=== PATIENT | male | born 1940 | race Caucasian/White ===

== ENCOUNTER 2017-10-12 21:31 | Observation (INO) | payer MEDICARE, BC ==
[~2017-10-12] VITALS: Ht 185.4 cm; Wt 64.9 kg
[~2017-10-12 21:31] MED LIST: B-COMPLEX PLUS1 TAB PO; CALCIUM1 CAP PO; CIPRO 500MG TA500 MG PO; COLACE 100100 MG/CAP PO; FLOMAX 0.40.4 MG/CAP PO; MULTIPLE VITAMI1 CAP PO; NORCO 325 MG-51 TAB PO; PROSTATE PO; PYRIDIUM 100MG100 MG PO; SENNA8.6 MG PO
[2017-10-12] MEDS ORDERED: OMEGA-3 1000 MG1 CAP (22:59)
[2017-10-12] MEDS ORDERED: OMEGA-3 1000 MG1 CAP PO (23:00)
[2017-10-12] MEDS ORDERED: THE MEDICINE S200 M2 PO (23:00)
[2017-10-12 23:01] VITALS: BP 128/83; PULSE 54; TEMP 97.8
[2017-10-13 01:47] VITALS: BP 118/71; PULSE 85; TEMP 98.5
[2017-10-13 06:11] VITALS: BP 121/82; PULSE 52; TEMP 98.7
[2017-10-13 06:49] LABS: HEMATOCRIT 42.4 % (42.0-52.0); HEMOGLOBIN 14.2 g/dl (13.5-18.0); MEAN CELL VOLUME 99 fl (80.0-100.0); MEAN CORPUSCULAR HEMOGLOBIN 33 pg (27.0-31.0); MEAN CORPUSCULAR HGB CONC 34 g/dl (33.0-37.0); MEAN PLATELET VOLUME 12.7 fl (7.4-10.4); PLATELET COUNT 123 K/mm3 (130-400); RED BLOOD COUNT 4.27 M/mm3 (4.20-5.60)
[2017-10-13 06:57] LABS: CALCIUM 8.6 mg/dL (8.4-10.2); CREATININE, serum 0.87 mg/dL (0.66-1.25); POTASSIUM 3.2 mmol/L (3.4-5.0)
[2017-10-13 08:00] VITALS: BP 136/85; PULSE 56; TEMP 97
[2017-10-13 13:04] LABS: BAND 11 % (0-10); EOSINOPHIL 1 % (0-4); LYMPHOCYTE 41 % (20.0-51.0); NEUTROPHILS 43 % (42.0-75.2); PLATELET ESTIMATE DECREASED (NORMAL); TOTAL CELLS COUNTED 100
[2017-10-13 13:25] VITALS: BP 115/69; PULSE 52; TEMP 97.9
[2017-10-15 13:20] LABS: ADD PATHOLOGY DIFF REVIEW YES
[2017-10-17 07:51] LABS: PATHOLOGY DIFF REVIEW OK +
== END 2017-10-13 14:30 | disposition home or self-care (01) ==
LOC: SURG 21:31
PROVIDERS: Nurse Practitioner
DX: K52.9 Noninfective gastroenteritis and colitis, unspecified (principal); R14.0 Abdominal distension (gaseous); C91.10 Chronic lymphocytic leukemia of B-cell type not having achieved remission; Z82.49 Family history of ischemic heart disease and other diseases of the circulatory system
CPT/HCPCS: C9113; G0378; J7030

== ENCOUNTER 2020-05-28 11:45 | Inpatient (IN) | payer MEDICARE, BC ==
[~2020-05-28] VITALS: Ht 185.4 cm; Wt 70.1 kg
[~2020-05-28 11:45] MED LIST changes: +OMEGA-3 1000 MG1 CAP; +OMEGA-3 1000 MG1 CAP PO; +THE MEDICINE S200 M2 PO
[2020-05-28 13:36] LABS: HEMATOCRIT 41.6 % (42.0-52.0); HEMOGLOBIN 13.9 g/dl (13.5-18.0); MEAN CELL VOLUME 98 fl (80.0-100.0); MEAN CORPUSCULAR HEMOGLOBIN 33 pg (27.0-31.0); MEAN CORPUSCULAR HGB CONC 33 g/dl (33.0-37.0); MEAN PLATELET VOLUME 12.2 fl (7.4-10.4); PLATELET COUNT 79 K/mm3 (130-400); RED BLOOD COUNT 4.25 M/mm3 (4.20-5.60); REDCELL DISTRIBUTION WIDTH-CV 13.5 % (11.5-14.5)
[2020-05-28 13:49] LABS: ALBUMIN 3.7 gm/dL (3.5-5.0); BILIRUBIN,TOTAL 0.9 mg/dL (0.0-1.0); CALCIUM 8.9 mg/dL (8.4-10.2); CREATININE, serum 1.35 (0.66-1.25); POTASSIUM 4.4 mmol/L (3.4-5.0); TOTAL PROTEIN 6.9 gm/dL (6.4-8.2)
[2020-05-28 14:04] LABS: TROPONIN-I 0.044 ng/mL (0.000-0.035)
[2020-05-28 14:11] LABS: BAND 4 % (0-10); LYMPHOCYTE 93 % (20.0-51.0); NEUTROPHILS 3 % (42.0-75.2)
[2020-05-28 14:12] LABS: PLATELET ESTIMATE DECREASED (NORMAL)
[2020-05-28 14:32] LABS: C-REACTIVE PROTEIN 31.2 mg/dL (0.0-0.9)
[2020-05-28 15:58] LABS: COLLECTION METHOD CLEAN CATCH
[2020-05-28 16:10] LABS: MUCOUS Present /lpf; PH 5 (5-8); SQUAMOUS EPITHELIAL 0-2 /hpf; URINE APPEARANCE Cloudy; URINE BACTERIA Rare /hpf; URINE BILIRUBIN Negative (NEGATIVE); URINE BLOOD 1+ (NEGATIVE); URINE COLOR Yellow; URINE GLUCOSE Negative (NEGATIVE); URINE KETONE Negative (NEGATIVE); URINE LEUKOCYTE ESTERASE Negative (NEGATIVE); URINE NITRATE Negative (NEGATIVE); URINE PROTEIN(semi-quant) 2+ (NEGATIVE); URINE UROBILINOGEN Negative (NEGATIVE)
--- NOTE | 2020-05-28 18:07 | NUR ---
Patient to room via wheelchair from ER. Patient assisted into bed with assist x2. Patient does feel weak. Oriented to room. Denies pain. OSMAN Valerio in room to see patient.
[2020-05-28 18:20] VITALS: BP 118/64; PULSE 78; TEMP 100.1
--- NOTE | 2020-05-28 19:05 | NUR ---
Vancomycin Initial Dosing Pharmacy Note Ordering provider: Michael Ledbetter MD Indication/duration: FEVER OF UNKNOWN ORGIN Relevant comorbidities: CLL LABS: WBC 21.2, SCr 1.4, CrCl 40, TMax 100.1 Recommendation: VANCOMYCIN 17MG/KG Maintenance dose: 1.25 grams every 24 hours Trough goal: 15. TROUGH 05/31 @ 1900 (BEFORE 4TH DOSE)
[2020-05-28 19:46] VITALS: BP 133/70; PULSE 82; TEMP 99.3
--- NOTE | 2020-05-28 20:03 | NUR ---
Pt sitting at edge of bed, weak and keeps leaning to the right. Trying to eat dinner. Medicated with Tylenol 650mg po for fever 99.9. Culture obtained from left shoulder wound. Resp virus panel obtained.
--- NOTE | 2020-05-28 21:10 | NUR ---
REPORTED TROPONIN 0.119 TO LAQUITA BREWER. NO NEW ORDERS.
--- NOTE | 2020-05-28 23:43 | NUR ---
Reported Troponin 0.131 to Leopoldo BREWER. No new orders.
[2020-05-28 23:46] VITALS: BP 91/58; PULSE 72; TEMP 98.4
--- NOTE | 2020-05-29 03:00 | NUR ---
PT DENIES PAIN, IVF INFUSING TO RIGHT AC WITHOUT PROBLEM. HAS BEEN UP TO VOID SEVERAL TIMES AND HAD BM.
[2020-05-29 03:22] VITALS: BP 127/61; PULSE 69; TEMP 99.2
--- NOTE | 2020-05-29 04:10 | NUR ---
HAS LARGE DIARRHEA STOOL. STOOL SAMPLE OBTAINED AND SENT TO LAB.
[2020-05-29 07:22] VITALS: BP 88/49; PULSE 74; TEMP 101.5
[2020-05-29 07:24] LABS: ALBUMIN 2.9 gm/dL (3.5-5.0); BILIRUBIN,TOTAL 0.8 mg/dL (0.0-1.0); CALCIUM 7.8 mg/dL (8.4-10.2); CREATININE, serum 1.32 (0.66-1.25); POTASSIUM 4.1 mmol/L (3.4-5.0); TOTAL PROTEIN 5.5 gm/dL (6.4-8.2)
[2020-05-29 07:31] LABS: MEAN CELL VOLUME 97 fl (80.0-100.0); MEAN CORPUSCULAR HEMOGLOBIN 32 pg (27.0-31.0); MEAN CORPUSCULAR HGB CONC 33 g/dl (33.0-37.0); MEAN PLATELET VOLUME 12.5 fl (7.4-10.4); PLATELET COUNT 70 K/mm3 (130-400); RED BLOOD COUNT 3.71 M/mm3 (4.20-5.60); REDCELL DISTRIBUTION WIDTH-CV 13.7 % (11.5-14.5)
[2020-05-29 07:32] LABS: TROPONIN-I 0.166 ng/mL (0.000-0.035)
--- NOTE | 2020-05-29 08:11 | NUR ---
Patient alert and oriented, answers questions appropriately. See assessment. Lungs CTA, heart tones strong and irregular. Pulses palpable. VS with increased temp and hypotension. Patient states no vertigo or chills present. Patient states overall status is much improved since admission. No other c/o at this time.
[2020-05-29 09:31] LABS: BAND 2 % (0-10); LYMPHOCYTE 81 % (20.0-51.0); NEUTROPHILS 15 % (42.0-75.2)
--- NOTE | 2020-05-29 10:30 | NUR ---
Dr Jones notified of consult.
--- NOTE | 2020-05-29 11:25 | NUR ---
Dr Olivarez here to see
[2020-05-29 11:58] VITALS: BP 110/64; PULSE 97; TEMP 97.9
--- NOTE | 2020-05-29 13:06 | NUR ---
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 Visited briefly with patient.
--- NOTE | 2020-05-29 14:23 | NUR ---
Plan: To return home in [place] with Margi [phone]. Assessment: SW met patient in room. Patient reports that his PCP is Dr. Pierre in [place]. Patient reports that he prefers [facility] for RX. Patient reports that he and his share DPOA for each other. Patient shares that he does not have any DME use and his does the transport. Patient declines home health care services. Action: SW educated patient on care supports. Will continue to follow for additional needs.
[2020-05-29 15:30] VITALS: BP 107/61; PULSE 71; TEMP 98.5
--- NOTE | 2020-05-29 21:00 | NUR ---
Dr Jones calls, updated on pt condition.
--- NOTE | 2020-05-29 21:26 | NUR ---
IV SITE LEAKING TO RIGHT AC. NEW SITE STARTED TO RIGHT FOREARM, #20 INSYTE, FLUSHES WELL, IV ANTIBIOTICS INFUSING WITHOUT PROBLEM.
[2020-05-29 23:00] VITALS: BP 129/76; PULSE 100; TEMP 97.9
--- NOTE | 2020-05-30 01:30 | NUR ---
PT UP TO BATHROOM WITH STANDBY. NEW IV ANTIBIOTICS INFUSED, PT TOLERATED WITHOUT PROBLEM. VOIDS AND HAS SMALL LOOSE STOOL, BACK TO BED.
[2020-05-30 04:05] VITALS: BP 97/55; PULSE 63; TEMP 98
[2020-05-30 06:42] LABS: HEMOGLOBIN 10.9 g/dl (13.5-18.0); MEAN CELL VOLUME 97 fl (80.0-100.0); MEAN CORPUSCULAR HEMOGLOBIN 33 pg (27.0-31.0); MEAN CORPUSCULAR HGB CONC 34 g/dl (33.0-37.0); MEAN PLATELET VOLUME 12.6 fl (7.4-10.4); PLATELET COUNT 63 K/mm3 (130-400); RED BLOOD COUNT 3.34 M/mm3 (4.20-5.60); REDCELL DISTRIBUTION WIDTH-CV 13.9 % (11.5-14.5)
[2020-05-30 06:47] LABS: HEMATOCRIT 32.4 % (42.0-52.0)
[2020-05-30 06:51] LABS: CALCIUM 7.7 mg/dL (8.4-10.2); CREATININE, serum 1.13 (0.66-1.25); POTASSIUM 3.6 mmol/L (3.4-5.0)
[2020-05-30 07:56] LABS: BAND 8 % (0-10); NEUTROPHILS 7 % (42.0-75.2)
[2020-05-30 07:59] LABS: PLATELET ESTIMATE DECREASED (NORMAL)
[2020-05-30 08:02] LABS: BURR CELLS 1+
[2020-05-30 08:03] LABS: LYMPHOCYTE 85 % (20.0-51.0)
[2020-05-30 08:08] VITALS: BP 111/64; PULSE 70; TEMP 98
[2020-05-30 11:05] VITALS: BP 121/80; PULSE 67; TEMP 98
--- NOTE | 2020-05-30 11:36 | NUR ---
Patient alert and oriented, answers questions appropriately. See assessment. Heart tones strong and even, pulses palpable. States feels progressively better as times goes on. No other c/o at this time.
[2020-05-30 15:01] VITALS: BP 123/70; PULSE 81; TEMP 99.2
--- NOTE | 2020-05-30 19:45 | NUR ---
RT ARM SWELLING NOTED AT IV SITE. RESTARTED #20G INSYTE TO RFA ON FIRST ATTEMPT, DC'D OLD IV SITE, ANGIOCATH INTACT. PT REPORTS FEELING BETTER. MINIMAL DIARRHEA, VOIDING WITHOUT PROBLEM.
--- NOTE | 2020-05-30 19:45 | NUR ---
LEFT FOREARM IV SITE WITH SWELLING, NEW SITE STARTED TO LEFT FOREARM #20 ON FIRST ATTEMPT. DC'D OLD SITE, ANGIOCATH INTACT.
[2020-05-30 20:00] VITALS: BP 119/75; PULSE 70; TEMP 98.6
[2020-05-31] VITALS (10 sets, daily range): BP systolic 104–154; BP diastolic 69–93; PULSE 51–89; TEMP 97.9–98.8
--- NOTE | 2020-05-31 00:36 | NUR ---
IS NPO. IVF CAPPED PER DR PRIEST.
--- NOTE | 2020-05-31 04:00 | NUR ---
Standby assist to bathroom, voids, small loose stool. Denies pain, back to bed with supervision.
--- NOTE | 2020-05-31 06:40 | NUR ---
Down to [facility] med for resting scans
[2020-05-31 06:48] LABS: HEMOGLOBIN 11.3 g/dl (13.5-18.0); MEAN CELL VOLUME 96 fl (80.0-100.0); MEAN CORPUSCULAR HEMOGLOBIN 33 pg (27.0-31.0); MEAN CORPUSCULAR HGB CONC 34 g/dl (33.0-37.0); MEAN PLATELET VOLUME 12.5 fl (7.4-10.4); PLATELET COUNT 73 K/mm3 (130-400); RED BLOOD COUNT 3.44 M/mm3 (4.20-5.60); REDCELL DISTRIBUTION WIDTH-CV 13.9 % (11.5-14.5)
[2020-05-31 06:52] LABS: HEMATOCRIT 33.1 % (42.0-52.0)
[2020-05-31 07:04] LABS: CALCIUM 8.2 mg/dL (8.4-10.2); POTASSIUM 3.3 mmol/L (3.4-5.0)
--- NOTE | 2020-05-31 09:10 | NUR ---
Patient down for tammy
--- NOTE | 2020-05-31 10:40 | NUR ---
Patient up from Lexiscan, stand by assist to restroom, patient having loose stools. Spouse at bedside. Denies further needs at this time.
--- NOTE | 2020-05-31 12:07 | NUR ---
Contacted Dr. Olivarez for diet order.
[2020-05-31 13:20] LABS: LYMPHOCYTE 92 % (20.0-51.0); NEUTROPHILS 6 % (42.0-75.2); OVALOCYTES 1+; PLATELET ESTIMATE DECREASED (NORMAL)
--- NOTE | 2020-05-31 13:21 | NUR ---
Nut Feeder met with the patient and his to revisit the discharge plan. They have no concerns about returning home at this time.
[2020-05-31] MEDS ORDERED: CIPRO 500MG TA500 MG PO (13:26)
[2020-05-31] MEDS ORDERED: MONODOX100 PO (13:27)
--- NOTE | 2020-05-31 13:59 | NUR ---
Patient ambulting in [place] with therapy
--- NOTE | 2020-05-31 14:56 | NUR ---
Patient up to restroom, stand by assit, denies further needs at this time
--- NOTE | 2020-05-31 15:45 | NUR ---
Discharge education provided to patient. Educated on signs and symptoms of infection and when to call provider. Educated on when to call provider and all follow up appointments. All questions answered. Spouse at bedside. INT to right forarm discontinued, cathter tip intact. Denies further needs at this time.
--- NOTE | 2020-05-31 15:50 | NUR ---
Patient out by wheelchair with surgical staff and spouse.
[2020-06-02 14:45] LABS: ANAPLASMA PHAGOCYTOPHILA IGG <1:64 titer (<1:64); E.CHAFFEENSIS IGG AB <1:64 titer (<1:64)
[2020-06-02 15:20] LABS: SPOTTED FEVER IGG ANTIBODY <1:64 (<1:64)
== END 2020-05-31 15:50 | disposition home or self-care (01) | DRG 871 ==
LOC: COL.ER 11:45 → SURG 17:05
PROVIDERS: Internal Medicine Infectious Disease; Physician Assistant; Student in an Organized Health Care Education/Training Program; ADMIT Family Medicine
DX: A41.9 Sepsis, unspecified organism (principal); I21.A1 Myocardial infarction type 2; C91.10 Chronic lymphocytic leukemia of B-cell type not having achieved remission; N17.9 Acute kidney failure, unspecified; E87.1 Hypo-osmolality and hyponatremia; D69.6 Thrombocytopenia, unspecified; Z20.828 Contact with and (suspected) exposure to other viral communicable diseases; R59.1 Generalized enlarged lymph nodes; I45.10 Unspecified right bundle-branch block; R91.1 Solitary pulmonary nodule; E27.9 Disorder of adrenal gland, unspecified; W57.XXXA Bitten or stung by nonvenomous insect and other nonvenomous arthropods, initial encounter
CPT/HCPCS: OP; 99222-AI; 99233-AI; A9500; G0378; J0692; J0744; J2543; J2785; J3370; J7030; J7050; J7120; Q9967

== ENCOUNTER 2020-08-13 08:44 | Outpatient (CLI) | payer MEDICARE, BC ==
[~2020-08-13] VITALS: Ht 185.4 cm; Wt 67.3 kg
[2020-08-13] VITALS (15 sets, daily range): BP systolic 116–163; BP diastolic 73–103; PULSE 42–116
[~2020-08-13 08:44] MED LIST changes: +B COMPLEX & B121 TAB PO; +CALCIUM CARBON650 M2 PO; +MONODOX100 PO; +ONE-A-DAY ESSE1 EACH PO
[2020-08-13] MEDS ORDERED: OSCAL 500 TAB500 MG PO (09:01)
[2020-08-13] MEDS ORDERED: THE MEDICINE S200 M2 PO (09:02)
[2020-08-13] MEDS ORDERED: CENTRUM 240 ML240 ML PO (09:02)
--- NOTE | 2020-08-13 09:35 | NUR ---
Pt to ct per ambulation. Denies pain. Monitors applied to pt. O2 on at 2l/nc.
--- NOTE | 2020-08-13 09:57 | NUR ---
Specimen obtained by Dr Lino and placed in formalin. Specimen labeled.
--- NOTE | 2020-08-13 12:05 | NUR ---
Pt is ready for discharge. okay to dc received from Dr. Lino. Pt has done well during this monitoring period, he has been resting comfortably with no increase in respiratory effort, no chest pain or any other sx. I reviewed dc and fu instructions with pt and his who denied questions at time of departure. IV was dc'd with cath intact, dressing was applied. he was escorted to his vehicle via wheelchair.
== END 2020-08-13 12:49 | disposition home or self-care (01) ==
LOC: COL.RAD 08:44
DX: R91.1 Solitary pulmonary nodule (principal); Z85.6 Personal history of leukemia
CPT/HCPCS: J2250; J3010